=== PATIENT | female | born 1965 | race Caucasian/White ===

== ENCOUNTER 2018-04-05 09:59 | Emergency (ER) | payer MEDICAID, OTHER ==
[~2018-04-05] VITALS: Ht 160 cm; Wt 46.7 kg
[~2018-04-05 09:59] MED LIST: ALBU8.5H8 IH; HYDR-3974 PO; PANT40TA2 PO; SUCR1ORA6 PO
--- NOTE | 2018-04-05 10:40 | NUR ---
[id number] C/O EPIGASTRIC PAIN W/ VOMITING X 2 WEEKS. PT AAOX4, VSS. DENIES CP, SOB, DIZZINESS, DIARRHEA @ THIS TIME. PT SEEN & EVAL'D BY DR. MEJIAS & WILL CONT TO MONITOR.
[2018-04-05 10:44] LABS: BASOPHILS # (AUTO) 0.2 /CMM (0.0-0.2); BASOPHILS % (AUTO) 1.2 % (0.0-2.0); EOSINOPHILS % (AUTO) 0.3 % (0.0-6.0); HEMATOCRIT 35 % (33-45); HEMOGLOBIN 11.8 g/dL (11.5-14.8); LYMPHOCYTES # (AUTO) 2.3 /CMM (0.8-4.8); LYMPHOCYTES % (AUTO) 13.4 % (20.0-44.0); MEAN CORPUSCULAR HGB CONC 33 g/dl (31.0-36.0); MEAN CORPUSCULAR VOLUME 94 fL (82-100); MONOCYTES # (AUTO) 0.8 /CMM (0.1-1.30); MONOCYTES % (AUTO) 4.7 % (2.0-12.0); NEUTROPHILS # (AUTO) 13.7 /CMM (1.8-8.9); NEUTROPHILS % (AUTO) 80.4 % (43.0-81.0); PLATELET COUNT (AUTO) 493 /CMM (150-450); RED BLOOD CELL COUNT(AUTO) 3.75 MIL/uL (4.0-5.2)
--- NOTE | 2018-04-05 10:45 | NUR ---
PT TO XRAY VIA [facility].
[2018-04-05] MEDS ORDERED: MAG HYDROX/AL HYDROX/SIMETH 30 ML UDC ONE (10:56)
[2018-04-05 10:57] LABS: CREATININE 0.7 mg/dL (0.6-1.3); POTASSIUM 4.1 mmol/L (3.5-5.1)
[2018-04-05] MEDS: MAG HYDROX/AL HYDROX/SIMETH 30 ML UDC PO ONE (10:57)
[2018-04-05 11:03] LABS: ALBUMIN 3.2 g/dL (3.4-5.0); BILIRUBIN,DIRECT 0.1 mg/dL (0.0-0.2); BILIRUBIN,TOTAL 0.4 mg/dL (0.2-1.0); TOTAL PROTEIN, SERUM 7.1 g/dL (6.4-8.2)
[2018-04-05] MEDS ORDERED: ONDANSETRON HCL/PF 4 MG/2 ML VIAL ONE ×2 (11:27→14:44)
[2018-04-05] MEDS ORDERED: MORPHINE SULFATE INJ 4 MG/ML DISP.SYRIN ONE ×2 (11:28→14:44)
[2018-04-05] MEDS: IV NS 0.9% 1,000 ML BAG IV ONE (11:38)
[2018-04-05] MEDS: MORPHINE SULFATE INJ 2 MG/ML DISP.SYRIN IV ONE ×2 (11:39→14:39)
[2018-04-05] MEDS: ONDANSETRON HCL/PF 4 MG/2 ML VIAL IVP ONE (11:39)
--- NOTE | 2018-04-05 11:43 | NUR ---
MEDICATED FOR PAIN PER ERMD ORDER, PT DARSHANA WELL.
[2018-04-05 13:05] LABS: APPEARANCE,URINE Slightly Cloudy (CLEAR); BILIRUBIN,URINE SMALL (NEGATIVE); BLOOD, URINE Trace-intact Ery/uL (NEGATIVE); KETONES,URINE 15 (NEGATIVE); LEUKOCYTE ESTERASE ,URINE Trace (NEGATIVE); NITRITE, URINE Negative (NEGATIVE); PROTEIN,URINE 30 mg/dl (NEGATIVE); UGLUCOSE Negative (NEGATIVE)
[2018-04-05 13:10] LABS: COLOR,URINE Dark Yellow (YELLOW)
[2018-04-05 13:15] LABS: BACTERIA,URINE Many /HPF (None Seen); SQUAMOUS EPITHELIAL CELL,UR Few /HPF (None Seen)
[2018-04-05] MEDS ORDERED: PANTOPRAZOLE 40 MG VIAL ONE (13:44)
[2018-04-05] MEDS: PANTOPRAZOLE 40 MG VIAL IV ONE (13:48)
--- NOTE | 2018-04-05 14:48 | NUR ---
[id number] [phone] FOR TRANSPORT AUTHORIZATION #[id number] Addendum: 04/05/18 at 1455 by JACKIE SIENA GONZALEZ
[2018-04-05] MEDS: ONDANSETRON HCL/PF 4 MG/2 ML VIAL IV ONE (14:50)
--- NOTE | 2018-04-05 14:51 | NUR ---
PT STS ABD PAIN STILL /. MEDICATED FOR PAIN PER ERMD ORDER, PT DARSHANA WELL. DENIES N/V/D OR ANY OTHER DISCOMFORT @ THIS TIME. WILL CONT TO MONITOR.
--- NOTE | 2018-04-05 15:05 | NUR ---
CALLED [facility] FOR TRANSPORT ETA OF 1600 WAS GIVEN. TRIP#[id number] AUTHORIZATION #[id number]
[2018-04-05 15:40] VITALS: BP 156/90
--- NOTE | 2018-04-05 15:46 | NUR ---
REPORT GIVEN TO MAYNOR SO @ [facility] FOR CONT OF CARE.
== END 2018-04-05 17:02 | disposition short-term general hospital (02) ==
LOC: ER 10:05
DX: K25.9 Gastric ulcer, unspecified as acute or chronic, without hemorrhage or perforation (principal); I10 Essential (primary) hypertension; J45.909 Unspecified asthma, uncomplicated; F10.10 Alcohol abuse, uncomplicated; F17.200 Nicotine dependence, unspecified, uncomplicated; Z98.890 Other specified postprocedural states; Y90.9 Presence of alcohol in blood, level not specified
CPT/HCPCS: 36415; 74176; 80048; 80076; 81001; 83690; 85025; 87077; 87086; 87186; 96374; 96375; 96376; 99285; A4606; C9113; J2270 ×2; J2405 ×2; J7030; 81000-TC